=== PATIENT | female | born 1990 | race Two or more races ===

== ENCOUNTER 2025-02-01 13:27 | Emergency (ER) | payer MEDICAID, SELFPAY ==
[2025-02-01 13:44] VITALS: BP 123/83; PULSE 100; RESP 18; TEMP 36.8; O2SAT 98; BMI 28.7
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
--- NOTE | 2025-02-01 13:52 | XR_ITS ---
Examination: CT cervical spine without contrast 2-D sagittal reconstructions 2-D coronal reconstructions 3-D reconstructions. Exam date and time:February 01, 2025 1446 hours INDICATIONS: Neck pain beginning 2 days ago CTDI:vol (mGy) 9.69 DLP: (mGycm) 212 Technique: Multiple 2 mm axial sections of the cervical spine have been obtained. The coronal and sagittal reconstructions have been obtained. 3-D reconstructions have been obtained. Low dose protocols were performed. One or more of the following dose reduction techniques were used; automated exposure control, adjustment of the mA and/or KV according to patient size, use of iterative reconstruction technique. Findings: Axial sections demonstrate intact base of the skull. C1 exhibit satisfactory relationship to the odontoid. No acute cervical vertebral body fracture seen. Alignment posterior spinous processes satisfactory. Impression: No acute cervical fracture. Early degenerative disc disease C5-C6 No significant acquired spinal stenosis
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
[2025-02-01] MEDS: IBUPROFEN TAB 600 MG TABLET PO (13:58)
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
[2025-02-01 16:25] VITALS: BP 112/79; PULSE 64; RESP 18; TEMP 36.7; O2SAT 97
== END 2025-02-01 16:27 | disposition home or self-care (01) ==
PROVIDERS: Emergency Provider Family Medicine
DX: S00.03XA Contusion of scalp, initial encounter (principal); Y04.1XXA Assault by human bite, initial encounter; M50.322 Other cervical disc degeneration at C5-C6 level; M79.641 Pain in right hand
CPT/HCPCS: 70450; 72125; 73120; 99284; A9270